=== PATIENT | female | born 1970 | race Caucasian/White ===

== ENCOUNTER 2021-03-31 11:40 | Inpatient (IN) | payer BC ==
[2021-03-31 11:59] LABS: Glucose,Whole Blood 193 mg/dL (75-99)
--- NOTE | 2021-03-31 12:01 | ED ---
General Adult HPI - General Chief complaint: Neuro Symptoms/Deficit Stated complaint: slurred speech, left side feels off Time Seen by Provider: 03/31/21 11:50 Source: patient, RN notes reviewed, old records reviewed Mode of arrival: wheelchair Limitations: no limitations - History of Present Illness Initial comments: This a 50-year-old female presents emergency Department with no significant past medical history. Patient states she does smoke. Patient comes in today because at 8:00 got up to let the dog out and she was speaking find the dog she went back to bed directly. Patient states she then woke up at 1020 and she was having expressive aphasia. Patient is unable to clearly speak at this time. Patient denies any weakness of any of her extremities. Patient does state the left side of her face feels different than the right which she is able to feel light touch and pain. Patient denies any recent fever chills or cough per patient denies any chest pain or palpitations. Patient said difficulty breathing shortness of breath. Patient denies abdominal pain patient denies nausea vomiting diarrhea. - Related Data Home Medications Medication Instructions Recorded Confirmed Apri 1 tab PO DAILY 03/31/21 03/31/21 Allergies Allergy/AdvReac Type Severity Reaction Status Date / Time No Known Allergies Allergy Verified 03/31/21 12:56 Review of Systems ROS Statement: Those systems with pertinent positive or pertinent negative responses have been documented in the HPI. ROS Other: All systems not noted in ROS Statement are negative. Past Medical History Past Medical History: No Reported History History of Any Multi-Drug Resistant Organisms: None Reported Past Surgical History: No Surgical Hx Reported Past Psychological History: No Psychological Hx Reported Smoking Status: Former smoker Past Alcohol Use History: Rare Past Drug Use History: None Reported General Exam - General Exam Comments Initial Comments: GENERAL: Patient is well-developed and well-nourished. Patient is nontoxic and well- hydrated and is in mild distress. ENT: Neck is soft and supple. No significant lymphadenopathy is noted. Oropharynx is clear. Moist mucous membranes. Neck has full range of motion without eliciting any pain. EYES: The sclera were anicteric and conjunctiva were pink and moist. Extraocular movements were intact and pupils were equal round and reactive to light. Eyelids were unremarkable. PULMONARY: Unlabored respirations. Good breath sounds bilaterally. No audible rales rhonchi or wheezing was noted. CARDIOVASCULAR: There is a regular rate and rhythm without any murmurs gallops or rubs. ABDOMEN: Soft and nontender with normal bowel sounds. SKIN: Skin is clear with no lesions or rashes and otherwise unremarkable. NEUROLOGIC: Patient is alert and oriented x3. Cranial nerves II through XII are grossly intact. Patient has normal strength in all 4 extremities. Patient's sensation in the left side of face according to her feels different. Patient has expressive aphasia. Symmetrical smile. Finger nose testing bilaterally was normal. MUSCULOSKELETAL: Normal extremities with adequate strength and full range of motion. LYMPHATICS: No significant lymphadenopathy is noted PSYCHIATRIC: Normal psychiatric evaluation. Limitations: no limitations Course Vital Signs 03/31/21 03/31/21 11:46 12:20 Temperature 97.8 F Pulse Rate 86 81 Respiratory 18 20 Rate Blood Pressure 128/75 130/75 O2 Sat by Pulse 96 96 Oximetry Medical Decision Making - Medical Decision Making EKG shows a sinus rhythm at 83 bpm WI interval 150 QRS 70 QT interval 370 QTC is 434. EKG shows no ST segment elevation or depression. CT of the brain shows a small central potential petechial hemorrhage in the brain stem. No other area of infarct is noted. I spoke with Dr. Guzmán he agreed to admit the patient admitted the patient wrote admitting orders. I spoke with Dr. Wilburn he states he will see the patient today. Patient is not receiving TPA because of the potential hemorrhage and the patient has not received an aspirin or antiplatelet therapy because of the petechial hemorrhage - Lab Data Result diagrams: 03/31/21 12:01 03/31/21 12:01 Lab Results 03/31/21 03/31/21 03/31/21 Range/Units 11:57 12:01 12:01 WBC 8.4 (3.8-10.6) k/uL RBC 4.28 (3.80-5.40) m/uL Hgb 13.5 (11.4-16.0) gm/dL Hct 40.5 (34.0-46.0) % MCV 94.7 (80.0-100.0) fL MCH 31.6 (25.0-35.0) pg MCHC 33.4 (31.0-37.0) g/dL RDW 12.3 (11.5-15.5) % Plt Count 278 (150-450) k/uL MPV 7.7 Neutrophils % 75 % Lymphocytes % 19 % Monocytes % 3 % Eosinophils % 2 % Basophils % 0 % Neutrophils # 6.2 (1.3-7.7) k/uL Lymphocytes # 1.6 (1.0-4.8) k/uL Monocytes # 0.3 (0-1.0) k/uL Eosinophils # 0.1 (0-0.7) k/uL Basophils # 0.0 (0-0.2) k/uL PT 9.6 (9.0-12.0) sec INR 0.9 (<1.2) APTT 22.3 (22.0-30.0) sec Sodium (137-145) mmol/L Potassium (3.5-5.1) mmol/L Chloride (98-107) mmol/L Carbon Dioxide (22-30) mmol/L Anion Gap mmol/L BUN (7-17) mg/dL Creatinine (0.52-1.04) mg/dL Est GFR (CKD-EPI)AfAm (>60 ml/min/1.73 sqM) Est GFR (CKD-EPI)NonAf (>60 ml/min/1.73 sqM) Glucose (74-99) mg/dL POC Glucose (mg/dL) 193 H (75-99) mg/dL POC Glu Rn Surgery Icu ID Yrn Martinez Calcium (8.4-10.2) mg/dL Total Bilirubin (0.2-1.3) mg/dL AST (14-36) U/L ALT (4-34) U/L Alkaline Phosphatase (38-126) U/L Troponin I (0.000-0.034) ng/mL Total Protein (6.3-8.2) g/dL Albumin (3.5-5.0) g/dL 03/31/21 03/31/21 Range/Units 12:01 12:01 WBC (3.8-10.6) k/uL RBC (3.80-5.40) m/uL Hgb (11.4-16.0) gm/dL Hct (34.0-46.0) % MCV (80.0-100.0) fL MCH (25.0-35.0) pg MCHC (31.0-37.0) g/dL RDW (11.5-15.5) % Plt Count (150-450) k/uL MPV Neutrophils % % Lymphocytes % % Monocytes % % Eosinophils % % Basophils % % Neutrophils # (1.3-7.7) k/uL Lymphocytes # (1.0-4.8) k/uL Monocytes # (0-1.0) k/uL Eosinophils # (0-0.7) k/uL Basophils # (0-0.2) k/uL PT (9.0-12.0) sec INR (<1.2) APTT (22.0-30.0) sec Sodium 134 L (137-145) mmol/L Potassium 4.2 (3.5-5.1) mmol/L Chloride 102 (98-107) mmol/L Carbon Dioxide 23 (22-30) mmol/L Anion Gap 9 mmol/L BUN 13 (7-17) mg/dL Creatinine 0.80 (0.52-1.04) mg/dL Est GFR (CKD-EPI)AfAm >90 (>60 ml/min/1.73 sqM) Est GFR (CKD-EPI)NonAf 87 (>60 ml/min/1.73 sqM) Glucose 190 H (74-99) mg/dL POC Glucose (mg/dL) (75-99) mg/dL POC Glu Rn Surgery Icu ID Calcium 9.0 (8.4-10.2) mg/dL Total Bilirubin 0.5 (0.2-1.3) mg/dL AST 23 (14-36) U/L ALT 17 (4-34) U/L Alkaline Phosphatase 61 (38-126) U/L Troponin I <0.012 (0.000-0.034) ng/mL Total Protein 6.9 (6.3-8.2) g/dL Albumin 3.9 (3.5-5.0) g/dL Critical Care Time Critical Care Time: Yes Total Critical Care Time: 35 Disposition Clinical Impression: Cerebrovascular accident (CVA), Brainstem hemorrhage Disposition: ADMITTED IP TO THIS HOSP Referrals: None,Stated [Primary Care Provider] - 1-2 days Time of Disposition: 13:08
[2021-03-31 12:24] LABS: Basophils % (A) 0 %; Eosinophils # (A) 0.1 k/uL (0-0.7); Eosinophils % (A) 2 %; HCT 40.5 % (34.0-46.0); HGB 13.5 gm/dL (11.4-16.0); Lymphocytes # (A) 1.6 k/uL (1.0-4.8); Lymphocytes % (A) 19 %; MCH 31.6 pg (25.0-35.0); MCHC 33.4 g/dL (31.0-37.0); MCV 94.7 fL (80.0-100.0); Mean Platelet Volume 7.7; Monocytes # (A) 0.3 k/uL (0-1.0); Monocytes % (A) 3 %; Neutrophils # (A) 6.2 k/uL (1.3-7.7); Neutrophils % (A) 75 %; Platelet Count 278 k/uL (150-450); RBC 4.28 m/uL (3.80-5.40); RDW 12.3 % (11.5-15.5); WBC 8.4 k/uL (3.8-10.6)
[2021-03-31 12:28] LABS: AST 23 U/L (14-36); African American GFR (CKD) >90 (>60 ml/min/1.73 sqM); Albumin 3.9 g/dL (3.5-5.0); Alkaline Phosphatase 61 U/L (38-126); Carbon Dioxide 23 mmol/L (22-30); Glucose 190 mg/dL (74-99); Non-African American GFR(CKD) 87 (>60 ml/min/1.73 sqM); Total Protein 6.9 g/dL (6.3-8.2)
[2021-03-31 12:32] LABS: ALT 17 U/L (4-34); Anion Gap 9 mmol/L; Blood Urea Nitrogen 13 mg/dL (7-17); Chloride 102 mmol/L (98-107); Potassium 4.2 mmol/L (3.5-5.1); Sodium 134 mmol/L (137-145); Total Bilirubin 0.5 mg/dL (0.2-1.3)
--- NOTE | 2021-03-31 12:34 | CT ---
EXAMINATION TYPE: CT brain wo con for TPA DATE OF EXAM: 03/31/2021 COMPARISON: None INDICATION: Slurred speech, Lt sided weakness DLP: 1044 mGycm, Automated exposure control for dose reduction was used. CONTRAST: None CT of the brain is performed utilizing 3 mm thick sections through the posterior fossa and 3 mm thick sections through the remaining calvarium. Study is performed within 24 hours of arrival to the hosp ital. There is a 0.3 cm punctate area within the central brainstem which is hyperdense. A tiny petechial he morrhage could be considered. Series 201 image 13. MRI could be performed for confirmation. No mass lesion is evident. No acute infarcts are evident. Ventricles and sulci are appropriate for the patient age. Paranasal sinuses and mastoid air cells within the [id number] are clear. IMPRESSIONS: 1. Punctate hyperdensity within the central brainstem. Tiny petechial hemorrhage is not excluded. C onsider MRI for additional evaluation. 2. Suspicious acute infarct is not identified. MRI could further evaluate for acute infarcts. 3. Report was called to the emergency room Dr. Pedraza by Dr. Gu by telephone at time of interpreta tion.
[2021-03-31 12:40] LABS: INR 0.9 (<1.2); Partial Thromboplastin Time 22.3 sec (22.0-30.0); Prothrombin Time 9.6 sec (9.0-12.0)
--- NOTE | 2021-03-31 12:41 | CT ---
EXAMINATION TYPE: CT angio head neck DATE OF EXAM: 03/31/2021 HISTORY: Slurred speech, Lt sided weakness COMPARISON: None CT DLP: 631.9 mGycm. Automated Exposure Control for Dose Reduction was Utilized. TECHNIQUE: CTA scan of the neck is performed with IV Contrast, patient injected with 65 mL of Isovue 370, axial images are obtained, coronal and sagittal reformatted images are reviewed. Three-D recons tructed images are created on an independent workstation and reviewed. Source images are reviewed. FINDINGS: Carotid/Vascular Structures: There is a three-vessel arch. Common carotid arteries bifurcate normally into internal and external carotid arteries. No focal stenosis is evident. The vertebral arteries ar e codominant. Internal carotid arteries are patent to the skull base. Cervical of [place]: Vertebral basilar system appears normal. Posterior cerebral vasculature is unrema rkable. Internal carotid arteries bifurcate normally into A1 and M1 segments. A2 segments are normal. The anterior communicating artery is patent. Left Posterior communicating artery is likely patent. R ight posterior communicating artery is patent. No enhancement at the brainstem to correlate with the finding on CT examination. The punctate central hyperintensity is not reproduced on this exam within the brainstem. Other: Lung apices within the field of view are clear. Portion of the thyroid visualized is normal. IMPRESSION: 1. No flow-limiting stenosis bilateral carotid bifurcations. 2. Normal tetlin of [place] NASCET criteria was used in interpretation of this exam?
--- NOTE | 2021-03-31 12:42 | XR ---
EXAMINATION TYPE: XR chest 2V DATE OF EXAM: 03/31/2021 COMPARISON: None INDICATION: Altered mental status left-sided weakness TECHNIQUE: Frontal and lateral views of the chest are obtained. FINDINGS: The heart size is normal. The pulmonary vasculature is normal. The lungs are clear. IMPRESSION: 1. No acute pulmonary process.
[2021-03-31 16:06] LABS: Amphetamine Screen,Urine Not Detected (NotDetected); Benzodiazepines Screen,Urine Not Detected (NotDetected); Cocaine Screen,Urine Not Detected (NotDetected); Methadone Screen, Urine Not Detected (NotDetected); Opiate Screen,Urine Not Detected (NotDetected); Phencyclidine Screen,Urine Not Detected (NotDetected); Tricyclic Antidepressant,Urine Not Detected (NotDetected); Urn Cannabinoid Scrn Not Detected (NotDetected)
[2021-03-31 16:07] LABS: Barbiturate Screen,Urine Not Detected (NotDetected); Oxycodone Screen, Urine Not Detected (NotDetected)
[2021-03-31] MEDS ORDERED: ACETAMINOPHEN TAB 500 MG TAB PO STA (17:01)
--- NOTE | 2021-03-31 17:17 | P.CNNES ---
History of Present Illness Consult date: 03/31/21 Requesting physician: José Pedraza Reason for Consult: CVA, brainstem hemorrhage History of Present Illness: Patient is a 50-year-old right-handed female came to the hospital at 11:40 AM for acute onset of expressive aphasia. Patient apparently woke up at 8 in the morning, got up, let the dog out and was talking to the dog normally. She went back to sleep shortly after that. She woke up at 10:20 AM and was having expressive aphasia, while she was talking to her daughter. Patient could not get any words out. Patient also noticed numbness of left side of her head including the face. When patient came to ER, she was unable to clearly speak at the time of evaluation in the ER. Patient did not have any weakness of any upper extremities. Her left side of the face felt different as compared to the right. No fever or chills. Denied any numbness tingling or weakness of her extremities. No double vision or loss of vision. Patient states she has never experienced any symptoms like this before. No history of migraines. Patient's vital signs on arrival blood pressure 128/75, pulse rate 86, temperatu re 97.8. Computed tomography scan of head showed punctate hyperdensity within the central brainstem. Tiny petechial hemorrhage is not excluded. Consider MRI for additional evaluation. Suspicious acute infarct is not identified. MRI could further evaluate for acute infarct. I personally reviewed computed tomography scan of the head, and agree with the findings of subtle hyperdensity in the central brainstem, cannot rule out small hemorrhage versus technical artifact. CTA of head and neck showed no flow-limiting stenosis bilateral carotid bifurcations. Normal white earth of [place]. EKG shows normal sinus rhythm. Blood tests showed normal CBC, PT/PTT, normal chem 20. Troponin negative. C hest x-ray showed no acute pulmonary process. Stroke code was activated. ED physician discussed case with stroke neurologist, and patient was not a candidate for TPA because of concern about brainstem hemorrhage, and patient was not a candidate for any neuro intervention, as there was no large vessel occlusion. MRI of the brain was recommended. Patient states that at around noon, she developed left frontal headache, which she rated 6/10. Patient's home medications include control pills Apri. Patient states that she has been on control pills for the last 17 years, although most recent brand Apri started 3 months ago. Patient also mentions that on 03/13/2020 when she received the first time vaccination off Lionel's and Lionel's coronavirus vaccine. Patient denies hypertension or diabetes. Patient was a light smoker 1 pack every 10 days for last 2 years. She has hist ory of light smoking for last 10 years. Denies any use of marijuana. Patient denies any history of migraines. She is gets minor headaches time to time, which is about 2 or 3 times a year, without any vascular features. She takes some OTC medication and the headache goes away. Review of Systems As mentioned in details in HPI. All other 14 point of review systems reviewed and unremarkable. No chest pain shortness of breath wheezing or cough. No double vision. No fever or chills. Past Medical History Past Medical History: No Reported History History of Any Multi-Drug Resistant Organisms: None Reported Past Surgical History: No Surgical Hx Reported Past Psychological History: No Psychological Hx Reported Smoking Status: Former smoker Past Alcohol Use History: Rare Past Drug Use History: None Reported Medications and Allergies Home Medications Medication Instructions Recorded Confirmed Type Apri 1 tab PO DAILY 03/31/21 03/31/21 History Allergies Allergy/AdvReac Type Severity Reaction Status Date / Time No Known Allergies Allergy Verified 03/31/21 12:56 Physical Examination - Vital Signs Vital Signs: Vital Signs Temp Pulse Resp BP Pulse Ox 03/31/21 12:20 81 20 130/75 96 03/31/21 11:46 97.8 F 86 18 128/75 96 Intake and Output 03/30/21 03/31/21 03/31/21 22:59 06:59 14:59 Other: Weight 99.79 kg Patient is a middle aged female, appears younger than her stated age. Patient is alert awake oriented to time place and person. Patient has some word hesitancy, some stuttering at times, and word finding problem. She however could name all 4/4 objects presented. She can repeat, comprehension is perfect. Very mild dysarthria. Attention, concentration and fund of knowledge is adequate. On cranial examination, pupils are round and reacting to light, visual morgan are full on confrontation, extraocular muscles are intact with no nystagmus. Face is symmetric, tongue protrudes to the midline. Palatal elevation and sen sation normal, hearing and shoulder shrug normal, facial sensation although normal to touch, but subjectively feels different on the left. Shoulder shrug normal. On muscle strength testing, there is no pronator drift and the strength is normal in arms and legs distally and proximally. Deep tendon reflexes are 1+ to 2 and symmetric and plantars downgoing. Sensory to touch is equal with no neglect. Cerebellar function showed no ataxia for [id number] testing. No dysdiadochokinesia. Tone and bulk of muscles normal. Gait deferred. On general examination, there is no carotid bruit or murmur, S1-S2 audible. Abdomen is soft nontender, bowel sounds present. Chest is clear. Peripheral pulses are present. No edema. Results - Laboratory Findings CBC and BMP: 03/31/21 12:01 03/31/21 12:01 Abnormal Lab Findings: Abnormal Labs 03/31/21 03/31/21 11:57 12:01 Sodium 134 L Glucose 190 H POC Glucose (mg/dL) 193 H Assessment and Plan Assessment: * Acute onset of expressive aphasia and left facial numbness. Rule out acute CVA. * Abnormal CT head, with evidence of small area of hyperdensity in the brainstem, rule out brainstem hemorrhage. * Hypercoagulable state due to taking control pills Apri, and also received coronavirus vaccination with J&J on 03/13/2021. * Light smoker. Plan: * Patient not a candidate for TPA because of abnormal computed tomography scan of head, showing a possibility of small brainstem hemorrhage. Patient not a candidate for intervention due to no large vessel occlusion. * We will perform stat MRI of the brain with and without contrast. Uncertain if it can be done today on Thursday. * If any changes in neuro status, repeat computed tomography scan of the head without contrast. * Patient's blood pressure is well controlled. * Hold antiplatelet agent (aspirin) until brainstem hemorrhage has been ruled out. * Close neuro checks every 1 hour. * Stop control pills * Complete tobacco cessation. * Telemetry monitoring * Fasting a.m. lipid panel, hemoglobin A1c. * Please call neurology for any changes in patients neuro status. * Dr. Oliver Monet will resume neurology service in the morning.
[2021-03-31] MEDS ORDERED: ALPRAZolam 0.25 MG TAB PO PRN (19:34)
--- NOTE | 2021-03-31 20:50 | HP ---
HISTORY AND PHYSICAL DATE OF SERVICE: 03/31/2021 CHIEF COMPLAINTS: Slurred speech, difficulty speaking and left-sided headache. HISTORY OF PRESENT ILLNESS: This 50-year-old woman with a past medical history of no significant medical or surgical issues recently had a Lionel and Lionel vaccine about 2 weeks ago. The patient apparently had to take it because of work reasons, and the patient is complaining of difficulty speaking today which lasted for several hours, mostly expressive dysphasia. The patient came to [facility]. Her speaking is improving at this time. The patient also had a full stroke workup in the ER. The basic labs in the ER showed normal CBC and sodium was 134, glucose 198. Drug screen was negative. COVID-19 was also negative. The patient had a CT of the brain which showed multiple abnormalities, including punctate hyperdensity within the central brain stem and tiny petechial hemorrhages not ruled out; suspicious acute infarct is not identified. CT angiography was also noted which showed no flow-limiting abnormalities, either. The patient is admitted for further evaluation and treatment. A chest x-ray which I reviewed also personally showed no acute abnormality and EKG showed no acute abnormality either. Neurology, Dr. Hill, has already seen the patient. There is no history of any fever, rigors or chills. No history of headache, loss of consciousness, seizures at this time. PAST MEDICAL HISTORY: No significant cardiovascular illness. HOME MEDICATIONS: None. ALLERGIES: NONE. FAMILY HISTORY: No history of heart disease or strokes in the family. SOCIAL HISTORY: Previous history of smoking. REVIEW OF SYSTEMS: ENT: As mentioned earlier. CARDIOVASCULAR SYSTEM: No angina, palpitations. RESPIRATORY SYSTEM: No cough, hemoptysis. GI: No nausea, vomiting, diarrhea. : No dysuria. NERVOUS SYSTEM: As mentioned earlier. ALLERGY/IMMUNOLOGY: No asthma or hay fever. MUSCULOSKELETAL: As mentioned earlier. HEMATOLOGY/ONCOLOGY: No history of anemia. ENDOCRINE: No history of diabetes or hypothyroidism. CONSTITUTIONAL: As mentioned earlier. DERMATOLOGY: Negative. RHEUMATOLOGY: Negative. PSYCHIATRY: As mentioned earlier. PHYSICAL EXAMINATION: Patient alert and oriented x3. Pulse 76, blood pressure 129/92, respiration 20, temperature 97.8, pulse ox 98% on room air. HEENT: Conjunctivae normal. NECK: No jugular venous distention. CARDIOVASCULAR: S1, S2 muffled. RESPIRATION: Breath sounds diminished at the bases. No rhonchi. No crackles. ABDOMEN: Soft, nontender. No mass palpable. LEGS: No edema. No swelling. NERVOUS SYSTEM: Higher functions as mentioned earlier. Cranial nerves 2 through 12 grossly intact. No focal motor or sensory deficit. LYMPHATICS: No lymph node palpable in neck, axillae or groin. SKIN: No ulcer, rash, bleeding. JOINTS: No active deforming arthropathy. LABS: CBC within normal limits. Sodium 134 and glucose 190. ASSESSMENT: 1. Aphasia possibly. Rule out acute CVA. 2. Rule out brainstem hemorrhage. 3. Rule out cerebral central venous sinus thrombosis. 4. History of recent Lionel and Lionel vaccination. 5. Increased random blood glucose. 6. Hyponatremia. 7. Obesity with body mass index 34.5. 8. FULL CODE. RECOMMENDATIONS AND DISCUSSION: In this 50-year-old woman who presented with multiple complex medical issues, we will monitor the patient closely, continue the current medications, continue with symptomatic treatment. Otherwise at this time we will do a full workup, including 2D echo, MRA and also MRV also will be ordered. Otherwise, DVT prophylaxis. Proton pump inhibitors. Repeat labs in the morning. Guarded prognosis because of multiple complex medical issues. Further recommendations to follow. Also recommend close followup with primary physician and Neurology in the outpatient setting. MMODL / IJN: [id number] /
[2021-03-31] MEDS: PANTOPRAZOLE 40 MG TABLET PO SCH (21:30)
[2021-04-01 04:37] VITALS: RESP 16
[2021-04-01] MEDS: ACETAMINOPHEN TAB 500 MG TAB PO PRN ×3 (04:40→21:00)
[2021-04-01] MEDS: PANTOPRAZOLE 40 MG TABLET PO SCH (06:16)
[2021-04-01 06:59] LABS: Basophils % (A) 0 %; Eosinophils # (A) 0.1 k/uL (0-0.7); Eosinophils % (A) 2 %; HCT 40.6 % (34.0-46.0); HGB 13.5 gm/dL (11.4-16.0); Lymphocytes # (A) 1.9 k/uL (1.0-4.8); Lymphocytes % (A) 25 %; MCH 31.5 pg (25.0-35.0); MCHC 33.3 g/dL (31.0-37.0); MCV 94.8 fL (80.0-100.0); Mean Platelet Volume 7.5; Monocytes # (A) 0.3 k/uL (0-1.0); Monocytes % (A) 4 %; Neutrophils % (A) 68 %; Platelet Count 284 k/uL (150-450); RBC 4.29 m/uL (3.80-5.40); RDW 12.5 % (11.5-15.5); WBC 7.3 k/uL (3.8-10.6)
[2021-04-01 07:10] LABS: Calcium 9.1 mg/dL (8.4-10.2); Potassium 4.2 mmol/L (3.5-5.1)
[2021-04-01 09:21] LABS: Chol/HDL Ratio 3.05 Ratio; LDL Cholesterol,Calculated 108.9 mg/dL (0.0-131.0)
--- NOTE | 2021-04-01 12:09 | MR ---
EXAMINATION TYPE: MR brain wo/w con, MR venography head wo/w con DATE OF EXAM: 04/01/2021 COMPARISON: CT brain dated yesterday. HISTORY: Acute ischemic CVA vs ? brain stem hemorrhage (accession [id number]), Thrombosis (accession [id number]). Slurred speech and left sided weakness. TECHNIQUE: Multiplanar, multisequence images of the brain and brainstem is performed without and with IV contras t, utilizing 10 mL intravenous Gadavist. MRV imaging without and with IV contrast. 2-D and 3-D recons tructed images are created on a independent workstation. FINDINGS: Diffusion weighted images demonstrate roughly 7 x 3 cm area of increased signal on diffusio n weighted images with diminished signal on ADC mapping that shows diminished T1 and increased T2 sig nal with sulcal effacement involving the left frontal lobe image 144 series 403 for reference. The ventricular system and cisternal spaces are normal in size and appearance. The brain volume is a ge appropriate. Occasional scattered T2 hyperintense foci throughout the white matter bilaterally. Ap proximately 10-15 scattered lesions are seen. Midline structures demonstrate normal morphology. The craniocervical junction appears within normal limits. Post contrast images demonstrate no abnormal enhancement. The visualized sinuses are clear a nd the globes are intact. There is patency of the superior sagittal sinus and straight sinus. Patent small caliber inferior sag ittal sinus. Patent internal cerebral vein of [place] draining into bilateral transverse sinuses extend ing into sigmoid sinuses bilaterally. IMPRESSION: 1. No deep cerebral venous thrombosis. 2. Acute infarct left frontal lobe is present. A Yellow level critical message alert has been initiated for Santos Joseph MD via the [employer] Critical Results System on 04/01/2021 12:07 PM. This message alert has been sent to Santos Joseph MD via the preferences provided by the clinician for the receipt of Radiology Critical Findings. Message ID [id number].
--- NOTE | 2021-04-01 14:15 | P.PN ---
Subjective Progress Note Date: 04/01/20 I am seeing the patient for the first time for neurological management. Please refer to Dr. Hill's notes for further details. Patient states her speech is back to baseline and denies any focal weakness, nu mbness. Denies any current headaches. Patient had MRI Brain and MRV head and it is reported as acute infarct in the left frontal lobe is present. No deep cerebral venous thrombosis. Objective - Vital Signs Vital signs: Vital Signs Temp 97.2 F L 04/01/21 07:52 Pulse 75 04/01/21 08:00 Resp 16 04/01/21 08:00 BP 118/69 04/01/21 07:52 Pulse Ox 94 L 04/01/21 07:52 Intake & Output 03/31/21 04/01/21 04/01/21 18:59 06:59 18:59 Weight 99.79 kg 99.79 kg Other: Voiding Method Toilet Toilet # Voids 1 - Exam GENERAL: The patient is lying in bed and is not in acute distress. NEUROLOGICAL: Higher mental function: The patient is awake, alert, oriented to self, place and time. Patient is following commands. No aphasia. No neglect. Cranial nerves: The pupils are round, equal and reactive to light and accommodation. Visual morgan are full to confrontation throughout. Extraocular movement is intact no nystagmus is noted. Facial sensation is normal to touch throughout. The facial strength is normal throughout. Hearing is normal bilaterally to hand rub. Tongue is midline and moved [id number] without any difficulty. No dysarthria is noted. Shoulder shrug is normal bilaterally. Motor: Gait is deferred. The strength is 5 over 5 throughout. Normal tone and bulk. Cerebellum: Normal finger to nose bilaterally. Sensation: Sensation is normal to touch throughout. Reflexes: 1+ throughout. Plantars are downgoing bilaterally. WORK-UP: Lipid panel is a triglyceride 141, cholesterol is 204, LDL of 108 and ACL 66. Hemoglobin A1c is 6.0 Urine drug screen is negative Jefferson virus pcr was not detected Computed tomography scan of head showed punctate hyperdensity within the central brainstem. Tiny petechial hemorrhage is not excluded. Consider MRI for additional evaluation. Suspicious acute infarct is not identified. MRI could further evaluate for acute infarct. CTA of head and neck showed no flow-limiting stenosis bilateral carotid bifurcations. Normal [place] of [place]. Patient had MRI Brain and MRV head and it is reported as acute infarct in the left frontal lobe is present. No deep cerebral venous thrombosis. - Labs CBC & Chem 7: 04/01/21 06:15 04/01/21 06:15 Labs: Abnormal Lab Results - Last 24 Hours (Table) 04/01/21 04/01/21 04/01/21 Range/Units 06:15 06:15 06:15 Sodium 135 L (137-145) mmol/L C-Reactive Protein 1.5 H (<1.0) mg/dL Cholesterol 204.00 H (0.00-200.00) mg/dL HDL Cholesterol 66.90 H (40.00-60.00) mg/dL Assessment and Plan Assessment: * Acute ischemic stroke (left frontal) with symptoms of transient expressive aphasia and left facial numbness. Stroke is cryptogenic (Seems embolic). No IV tpa since there was suspicion for bleed in brainstem and risk outweigh benefit (during presentation). * ?Abnormal CT head, with evidence of small area of hyperdensity in the brainstem, rule out brainstem hemorrhage. Not seen on MRI. * Hypercoagulable state due to taking control pills Apri, and also received coronavirus vaccination with J&J on 03/13/2021. * Tobacco use Plan: I started the patient on ASA 81mg daily and I will repeat CT head tomorrow and if no bleeding on repeat CT head will add Plavix 75mg daily in addition. Started on Lipitor 80mg daily for secondary stroke prophylaxis. 2D echo with bubble study is pending. PT, OT and BILINGUAL SALES ASSISTANT are consulted. Continue Neuro checks. Placed on continous cardiac monitoring. Recommend Hypercoagulable work-up as outpatient (recommend to follow-up with Knowledge Manager as outpatient). Recommend MICHELLE as outpatient. Ordered event monitor Continue to avoid any further estrogen control pills. Patient was counseled on tobacco cessation. Will defer the rest of medical management to the primary team. For DVT prophylaxis: Placed on subq heparin 5000U every 12 hours. Upon discharge, the patient needs to follow-up with neurologist as outpatient within 1-2 weeks. If by tomorrow patient CT is negative for bleed and 2D echo is normal. Will add Plavix and patient is clear for discharge from neurological perspective. The plan is discussed with patient and her nurse. Oliver Monet M.D. Neuro-Hospitalist Time with Patient: Less than 30
[2021-04-01] MEDS: ASPIRIN 81 MG PO SCH (15:41)
--- NOTE | 2021-04-01 20:33 | PN ---
PROGRESS NOTE DATE OF SERVICE: 04/01/2021 This 50-year-old woman who was admitted with left-sided slurred speech and expressive dysphasia. The patient is being closely monitored. Neurology evaluation is in progress. MR did not show any evidence of any cerebellar venous sinus thrombosis. The patient has a family history of strokes and also patient was taking control pills mildly elevated as well as the patient has taken a recent Lionel and Lionel vaccine also. The patient is being closely monitored. Past medical history reviewed. REVIEW OF SYSTEMS: CARDIOVASCULAR SYSTEM: No angina. RESPIRATION: As mentioned earlier. GI: As mentioned earlier. : No dysuria. NERVOUS SYSTEM: As mentioned earlier. CURRENT MEDICATIONS: Reviewed. They include Tylenol, Xanax, aspirin, Lipitor, subcutaneous heparin, Protonix. PHYSICAL EXAMINATION: Patient alert and oriented x3. Pulse 90, blood pressure 170/74, respiration 16, temperature 98.0, pulse ox 98% on room air. HEENT: Conjunctivae normal. NECK: No jugular venous distention. CARDIOVASCULAR: S1, S2 muffled. RESPIRATION: Breath sounds diminished at the bases. No rhonchi. No crackles. ABDOMEN: Soft. LEGS: No edema. No swelling. NERVOUS SYSTEM: No focal deficit. LABS: CBC within normal limits. Sodium 135. Otherwise, cholesterol is 214. ASSESSMENT: 1. Expressive dysphasia, possibly acute left frontal stroke. Rule out embolic source. 2. Possible brainstem lesion not seen on MRI. 3. Cerebral venous thrombosis ruled out. 4. History of recent Lionel and Lionel vaccination. 5. Family history of strokes. 6. Increased random blood sugar. 7. Hyponatremia. 8. Obesity with body mass index 34.5. 9. Hyperlipidemia with mild hypercholesteremia. RECOMMENDATIONS AND DISCUSSION: In this 50-year-old woman who presented with multiple complex medical issues, we will monitor the patient closely, continue the current medications, continue symptomatic treatment. Continue with the antiplatelet agents. I would also recommend a cardiology consultation for possible MICHELLE and telemetry and further evaluation. Guarded prognosis because of multiple complex medical issues. Continue with antiplatelet agents and antihyperlipidemic agents. Further recommendations to follow. Discussed with the patient, who understands and agrees. MMODL / IJN: [id number] / BRANDI
[2021-04-01] MEDS ORDERED: ATORVASTATIN 80 MG TAB PO SCH (21:00)
[2021-04-01] MEDS: HEPARIN SODIUM,PORCINE/PF 5,000 UNIT/0.5 ML SYRINGE SQ SCH (21:01)
[2021-04-01 23:44] LABS: Appearance,Urine Clear (Clear); Bacteria,Urine Rare /hpf; Bilirubin,Urine Negative (Negative); Blood,Urine Small (Negative); Color,Urine Yellow; Glucose,Urine (UA) Negative (Negative); Ketones,Urine Negative (Negative); Leukocyte Esterase,Urine Small (Negative); Mucus,Urine Rare /hpf; Nitrite,Urine Negative (Negative); PH, Urine 6.5 (5.0-8.0); Protein,Urine Trace (Negative); RBC,Urine 8 /hpf (0-5); Specific Gravity,Urine 1.028 (1.001-1.035); Squamous Epithelial Cell,Urine 4 /hpf (0-4); Urobilinogen,Urine <2.0 mg/dL (<2.0); WBC,Urine 2 /hpf (0-5)
[2021-04-02] MEDS: PANTOPRAZOLE 40 MG TABLET PO SCH (07:07)
--- NOTE | 2021-04-02 07:46 | ECHOF ---
Referral Reason:cva MEASUREMENTS -------- HEIGHT: 170.2 cm WEIGHT: 99.8 kg BP: IVSd: 1.1 cm (0.6 - 1.1) LVIDd: 3.3 cm (3.9 - 5.3) LVPWd: 1.1 cm (0.6 - 1.1) IVSs: 1.7 cm LVIDs: 1.9 cm LVPWs: 1.9 cm LAESV Index (A-L): 15.50 ml/m Ao Diam: 3.0 cm (2.0 - 3.7) AV Cusp: 1.6 cm (1.5 - 2.6) LA Diam: 3.3 cm (2.7 - 3.8) MV EXCURSION: 14.924 mm (> 18.000) MV EF SLOPE: 70 mm/s (70 - 150) EPSS: 0.5 cm MV E Alok: 0.59 m/s MV DecT: 209 ms MV A Alok: 0.66 m/s MV E/A Ratio: 0.89 RAP: 5.00 mmHg RVSP: 10.41 mmHg FINDINGS -------- This was a technically good study. The left ventricular size is normal. Left ventricular wall thickness is normal. Overall left vent ricular systolic function is normal with, an EF between 55 - 60 %. The diastolic filling pattern is normal for the age of the patient 7.83. The right ventricle is normal in size. The left atrial size is normal. Normal LA size by volume 22+/-6 ml/m2. The right atrial size is normal. Contrast study was performed with 2 iv injections of 8 ccs of agitated normal saline, at rest, and wi th cough. Interatrial and interventricular septum intact. The aortic valve is trileaflet and appears structurally normal. The mitral valve is normal. There is trace mitral regurgitation. The tricuspid valve appears structurally normal. Trace tricuspid regurgitation present. Right rock tricular systolic pressure is normal at < 35 mmHg. There is no pulmonic regurgitation present. The aortic root size is normal. Normal inferior vena cava with normal inspiratory collapse consistent with estimated right atrial pre ssure of 5 mmHg. There is no pericardial effusion. CONCLUSIONS -------- 1. The left ventricular size is normal. 2. Left ventricular wall thickness is normal. 3. Overall left ventricular systolic function is normal with, an EF between 55 - 60 %. 4. The diastolic filling pattern is normal for the age of the patient 7.83 5. Contrast study was performed with 2 iv injections of 8 ccs of agitated normal saline, at rest, and with cough. 6. Interatrial and interventricular septum intact. 7. There is trace mitral regurgitation. 8. Trace tricuspid regurgitation present. 9. There is no pericardial effusion. ROLL MECHANIC: Rosy Ann RDCS
[2021-04-02 08:06] VITALS: BP 108/66; PULSE 93; TEMP 98.3
[2021-04-02] MEDS: ASPIRIN 81 MG PO SCH (08:07)
[2021-04-02] MEDS: HEPARIN SODIUM,PORCINE/PF 5,000 UNIT/0.5 ML SYRINGE SQ SCH (08:07)
[2021-04-02 08:22] LABS: Basophils % (A) 0 %; Eosinophils # (A) 0.1 k/uL (0-0.7); Eosinophils % (A) 2 %; HCT 39.8 % (34.0-46.0); HGB 13.1 gm/dL (11.4-16.0); Lymphocytes # (A) 2.1 k/uL (1.0-4.8); Lymphocytes % (A) 30 %; MCV 93.9 fL (80.0-100.0); Mean Platelet Volume 7.8; Monocytes # (A) 0.4 k/uL (0-1.0); Monocytes % (A) 5 %; Neutrophils # (A) 4.3 k/uL (1.3-7.7); Neutrophils % (A) 62 %; Platelet Count 300 k/uL (150-450); RBC 4.24 m/uL (3.80-5.40); RDW 12.2 % (11.5-15.5); WBC 6.9 k/uL (3.8-10.6)
[2021-04-02 08:31] LABS: African American GFR (CKD) >90 (>60 ml/min/1.73 sqM); Anion Gap 8 mmol/L; Blood Urea Nitrogen 14 mg/dL (7-17); Carbon Dioxide 23 mmol/L (22-30); Chloride 104 mmol/L (98-107); Glucose 113 mg/dL (74-99); Non-African American GFR(CKD) 82 (>60 ml/min/1.73 sqM); Potassium 4.3 mmol/L (3.5-5.1); Sodium 135 mmol/L (137-145)
--- NOTE | 2021-04-02 08:32 | CT ---
EXAMINATION TYPE: CT brain wo con DATE OF EXAM: 04/02/2021 COMPARISON: CT brain 2 days ago. MRI brain yesterday. HISTORY: CVA, BrainStem Hemorrhage CT DLP: 1062.4 mGycm. Automated Exposure Control for Dose Reduction was Utilized. TECHNIQUE: CT scan of the head is performed without contrast. FINDINGS: Possible 2 mm central punctate density brainstem axial image 12 is less prominent than prio r study. Heterogeneity of skull base redemonstrated. Evolving acute infarct left frontal lobe axial i mage 25 correlates with recent MRI. The ventricles and sulci are stable and within normal limits in s ize. The globes are intact and the visualized sinuses are clear. IMPRESSION: Evolving acute left frontal lobe infarct now identified on CT correlates with MRI from .
[2021-04-02] MEDS ORDERED: CLOPIDOGREL 75 MG TAB PO SCH (09:00)
--- NOTE | 2021-04-02 10:05 | P.CRDCN ---
History of Present Illness Consult date: 04/02/21 History of present illness: HISTORY OF PRESENT ILLNESS: This is a 50-year-old female with no significant past medical history. Patient does not follow with a dietitian assistant. We have been asked to see the patient in consultation for CVA. Patient examined at the bedside. Patient states she woke up Thursday morning and her speech was all garbled. She denied any have weakness of her extremities. The patient denies any history of TIA/CVA. She denies having any palpitations. MRI of the brain was completed revealing no deep cerebral venous thrombosis. Acute infarct left frontal lobe is present. CAT scan performed this morning revealed evolving acute left frontal lobe infarction now identified on CT correlating with MRI from yesterday. The patients speech is now back to baseline. EKG reveals sinus mechanism. Telemetry reveals sinus mechanism with no arrhythmias noted. Echocardiogram completed revealing ejection fraction 55-60%, interatrial and interventricular septum intact, trace mitral regurgitation, and trace tricuspid regurgitation. The patient is a light smoker. She states her sister had a CVA when she was in her 20s that was related to drug use. She states her father has coronary artery disease and recently had open heart surgery. REVIEW OF SYSTEMS: At the time of my exam: CONSTITUTIONAL: Denies fever or chills. HEENT: Denies blurred vision, vision changes, or eye pain. Denies hemoptysis CARDIOVASCULAR: Denies chest pain. Denies orthopnea. Denies PND. Denies palpitations RESPIRATORY: Denies shortness of breath. GASTROINTESTINAL: Denies abdominal pain. Denies nausea or vomiting. HEMATOLOGIC: Denies bleeding disorders. GENITOURINARY: Denies any blood in urine. SKIN: Denies pruitis. Denies rash. PHYSICAL EXAM: VITAL SIGNS: Reviewed. GENERAL: Well-developed in no acute distress. HEENT: Head is normocephalic. Pupils are equal, round. Sclerae anicteric. Mucous membranes of the mouth are moist. Neck supple. No JVD or thyromegaly LUNGS: Respirations even and unlabored. Lungs essentially clear to auscultation bilaterally. HEART: Regular rate and rhythm. S1 and S2 heard. ABDOMEN: Soft. Nondistended. Nontender. EXTREMITIES: Normal range of motion. No clubbing or cyanosis. Peripheral pulses intact. No lower extremity edema NEUROLOGIC: Awake and alert. Oriented x 3. ASSESSMENT: Acute left frontal lobe CVA Expressive aphasia, resolved Nicotine dependence PLAN: Smoking cessation recommended Continue aspirin, plavix, and lipitor Patient to be discharged with a 30 day event monitor Patient will require MICHELLE. This may be done as an outpatient next week with Dr. Shelley (Per Dr. Lepe). The procedure was explained in detail to the patient including the risks and benefits. She is agreeable to proceed. Patient may be discharged home this afternoon and follow up with Dr. Lepe Nurse practitioner note has been reviewed by physician. Signing provider agrees with the documented findings, assessment, and plan of care. Past Medical History Past Medical History: No Reported History History of Any Multi-Drug Resistant Organisms: None Reported Past Surgical History: No Surgical Hx Reported Past Anesthesia/Blood Transfusion Reactions: No Reported Reaction Past Psychological History: No Psychological Hx Reported Smoking Status: Current some day smoker Past Alcohol Use History: Rare Past Drug Use History: None Reported Additional Drug Use History / Comment(s): Pt states she smokes about every other day. - Past Family History Mother Family Medical History: Cancer Additional Family Medical History / Comment(s): from breast cancer Father Family Medical History: AICD/Pacemaker Additional Family Medical History / Comment(s): CABG x4 Medications and Allergies Home Medications Medication Instructions Recorded Confirmed Type Apri 1 tab PO DAILY 03/31/21 03/31/21 History Allergies Allergy/AdvReac Type Severity Reaction Status Date / Time No Known Allergies Allergy Verified 03/31/21 12:56 Physical Exam Vitals: Vital Signs Temp Pulse Pulse Resp BP BP Pulse Ox 04/02/21 08:00 98.3 F 93 16 108/66 96 04/02/21 04:06 97.4 F L 67 16 105/62 97 04/02/21 02:00 16 04/01/21 22:56 97.9 F 76 16 129/77 97 04/01/21 19:53 74 16 122/77 97 04/01/21 16:00 98.0 F 91 16 117/74 98 04/01/21 14:00 77 16 04/01/21 12:00 77 16 125/76 97 Intake and Output 04/01/21 04/02/21 04/02/21 22:59 06:59 14:59 Other: Voiding Method Toilet # Voids 1 Results 04/02/21 07:30 01/04/22 07:30 Lipids 04/01/21 Range/Units 06:15 Triglycerides 141.00 (0.00-149.00) mg/dL Cholesterol 204.00 H (0.00-200.00) mg/dL HDL Cholesterol 66.90 H (40.00-60.00) mg/dL Cholesterol/HDL Ratio 3.05 Ratio Current Medications Generic Name Dose Route Start Last Admin Trade Name Freq PRN Reason Stop Dose Admin Acetaminophen 500 mg 03/31/21 19:34 04/01/21 21:00 Acetaminophen Tab 500 Mg Tab PO 500 mg Q6HR PRN Administration Fever and/ or Pain Alprazolam 0.25 mg 03/31/21 19:34 Alprazolam 0.25 Mg Tab PO TID PRN Anxiety Aspirin 81 mg 04/01/21 12:30 04/02/21 08:07 Aspirin 81 Mg PO 81 mg DAILY YMAIL Administration Atorvastatin Calcium 80 mg 04/01/21 21:00 04/01/21 21:01 Atorvastatin 80 Mg Tab PO 80 mg HS YAMIL Administration Heparin Sodium (Porcine) 5,000 unit 04/01/21 21:00 04/02/21 08:07 Heparin Sodium,Porcine/Pf 5,000 Unit/0.5 Ml Syringe SQ 5,000 unit Q12HR YAMIL Administration Pantoprazole Sodium 40 mg 03/31/21 19:45 04/02/21 07:07 Pantoprazole 40 Mg Tablet PO Not Given [id number] YAMIL Intake and Output 04/01/21 04/02/21 04/02/21 22:59 06:59 14:59 Other: Voiding Method Toilet # Voids 1 04/01/21 06:15 04/01/21 06:15
--- NOTE | 2021-04-02 12:24 | P.PN ---
Subjective Progress Note Date: 04/02/21 The patient is seen at bedside and continues to be feeling well. Denies any further aphasia. Denies any other neurological deficits. Objective - Vital Signs Vital signs: Vital Signs Temp 98.3 F 04/02/21 08:00 Pulse 93 04/02/21 08:00 Resp 16 04/02/21 08:00 BP 108/66 04/02/21 08:00 Pulse Ox 96 04/02/21 08:00 Intake & Output 04/01/21 04/02/21 04/02/21 18:59 06:59 18:59 Intake Total 120 Balance 120 Intake: Oral 120 Other: Voiding Method Toilet Toilet # Voids 2 1 - Exam GENERAL: The patient is lying in bed and is not in acute distress. NEUROLOGICAL: Higher mental function: The patient is awake, alert, oriented to self, place and time. Patient is following commands. No aphasia. No neglect. Cranial nerves: The pupils are round, equal and reactive to light and accommodation. Visual morgan are full to confrontation throughout. Extraocular movement is intact no nystagmus is noted. Facial sensation is normal to touch throughout. The facial strength is normal throughout. Hearing is normal bilaterally to hand rub. Tongue is midline and moved [id number] without any difficulty. No dysarthria is noted. Shoulder shrug is normal bilaterally. Motor: Gait is deferred. The strength is 5 over 5 throughout. Normal tone and bulk. Cerebellum: Normal finger to nose bilaterally. Sensation: Sensation is normal to touch throughout. Reflexes: 1+ throughout. Plantars are downgoing bilaterally. WORK-UP: Lipid panel is a triglyceride 141, cholesterol is 204, LDL of 108 and ACL 66. Hemoglobin A1c is 6.0 Urine drug screen is negative Jefferson virus pcr was not detected Computed tomography scan of head showed punctate hyperdensity within the central brainstem. Tiny petechial hemorrhage is not excluded. Consider MRI for additional evaluation. Suspicious acute infarct is not identified. MRI could further evaluate for acute infarct. CTA of head and neck showed no flow-limiting stenosis bilateral carotid bifurcations. Normal [place] of [place]. MRI Brain and MRV head and it is reported as acute infarct in the left frontal lobe is present. No deep cerebral venous thrombosis. Repeat CT head on 04/02/2020: Is reported as evolving acute left frontal lobe infarct now identified on CT correlate with MRI from yesterday. In the body of the report it it is mentioned possible 2 mm central punctate density brainstem axial image 12 is less prominent than prior study. I personally reviewed that a CT of the head and I don't appreciate any intraparenchymal/brainstem bleeding. 2-D echo was reported as left ventricular wall thickness is normal. Ejection fraction of 55-60%. Contrast study was performed and the intra-arterial an intraventricular septum is intact. Left atrial size is normal. - Labs CBC & Chem 7: 04/02/21 07:30 04/02/21 07:30 Labs: Abnormal Lab Results - Last 24 Hours (Table) 04/01/21 04/02/21 Range/Units 22:30 07:30 Sodium 135 L (137-145) mmol/L Glucose 113 H (74-99) mg/dL Urine Protein Trace H (Negative) Urine Blood Small H (Negative) Ur Leukocyte Esterase Small H (Negative) Urine RBC 8 H (0-5) /hpf Urine Bacteria Rare H (None) /hpf Urine Mucus Rare H (None) /hpf Assessment and Plan Assessment: * Acute ischemic stroke (left frontal) with symptoms of transient expressive aphasia and left facial numbness. Stroke is cryptogenic (Seems embolic). No IV tpa since there was suspicion for bleed in brainstem and risk outweigh benefit (during presentation). * ?Abnormal CT head, with evidence of small area of hyperdensity in the brainstem, rule out brainstem hemorrhage. Not seen on MRI or repeat CT head (therefore no Bleeding noted on repeated images and I it was not definitive bleeding on initial CT). Therefore no evidence of bleed. * Hypercoagulable state due to taking control pills Apri, and also received coronavirus vaccination with J&J on 03/13/2021. * Tobacco use Plan: * Continue ASA 81mg daily and started Plavix 75mg daily (was not on antiplatelets prior to this admission). And to be on dual antiplatelets for 21 days and after that to stop Plavix but continue indefinitely on aspirin 81 mg daily. Decreased Lipitor 80mg daily to 40mg qhs for secondary stroke prophylaxis. * PT, OT and PLATE GRAINER APPRENTICE are consulted. * Continue Neuro checks. * On continous cardiac monitoring. So far no A-fib or flutter so far on tele. * Recommend Hypercoagulable work-up as outpatient (recommend to follow-up with Print Journalist as outpatient). * Recommend MICHELLE as outpatient. Primary team consulted cardiology team for MICHELLE but it seems it will be done as an outpatient. * Ordered event monitor for 30 days and follow-up with cardiology team. * Continue to avoid any further estrogen control pills. * Patient was counseled on tobacco cessation. * Will defer the rest of medical management to the primary team. * For DVT prophylaxis: Continue subq heparin 5000U every 12 hours. * Upon discharge, the patient needs to follow-up with neurologist as outpatient within 1-2 weeks. The plan is discussed with patient, her significant other (who is at bedside) and her nurse. Patient is clear from a neurological perspective. Oliver Monet M.D. Neuro-Hospitalist Time with Patient: Less than 30
[2021-04-02] MEDS ORDERED: ATORVASTATIN 40 MG TAB PO SCH (21:00)
--- NOTE | 2021-04-02 21:31 | DS ---
DISCHARGE SUMMARY FINAL DIAGNOSES: 1. Expressive dysphagia, possibly acute left frontal stroke, rule out embolic source. 2. Possible brainstem lesion in the CT scan, but not seen on MRI. 3. Venous thrombosis ruled out. 4. History of recent Lionel&Lionel vaccination. 5. Family history of stroke. 6. Increased random blood glucose. 7. Hyponatremia. 8. Obesity, body mass of 34.5. 9. Hyperlipidemia. 10.Mild hypercholesteremia. DISCHARGE DISPOSITION: Patient will be discharged in stable condition with guarded prognosis. HISTORY OF PRESENT ILLNESS: This 50-year-old woman with a past medical history of multiple medical problems admitted with expressive dysphasia. The patient had acute stroke in the left frontal area in the MRI scan. Neurovascular workup was otherwise negative. Transthoracic 2D echo was okay. Cardiology recommended outpatient MICHELLE. Neurology saw the patient. Please refer to the multiple consultants notes for further information. Patient improved significantly. There was no focal motor deficit. EXAM: Vitals stable. Cardiovascular S1, S2. Abdomen soft. Nervous system: No focal deficits. DISCHARGE ADVICE AND MEDICATIONS: 1. Diet is cardiac diet. 2. Activity limited until followup. 3. Follow up with Dr. Ahn in 2 days. 4. Follow up with Dr. Dylan Lepe as advised. 5. Follow up with Dr. Hebert as advised. Otherwise discharge medications were: 1. Plavix. 2. Aspirin 81 mg p.o. daily. 3. Lipitor 40 mg p.o. q.h.s. 4. Plavix 75 mg p.o. daily. 5. Tylenol 500 mg q.6 p.r.n. Outpatient followup with Dr. Dylan Lpee for MICHELLE. MMODL / IJN: [id number] / [facility]y
== END 2021-04-02 14:45 | disposition home or self-care (01) | DRG 65 ==
LOC: EC 11:40 → 3SCARD 13:12
PROVIDERS: ADMIT Internal Medicine; ATTEND Internal Medicine
DX: I61.3 Nontraumatic intracerebral hemorrhage in brain stem (principal); E87.1 Hypo-osmolality and hyponatremia; R47.01 Aphasia; R47.81 Slurred speech; Z20.822 Contact with and (suspected) exposure to COVID-19; E66.9 Obesity, unspecified; E78.00 Pure hypercholesterolemia, unspecified; I08.1 Rheumatic disorders of both mitral and tricuspid valves; E78.5 Hyperlipidemia, unspecified; F17.210 Nicotine dependence, cigarettes, uncomplicated; R13.10 Dysphagia, unspecified; R47.02 Dysphasia; Z68.34 Body mass index [BMI] 34.0-34.9, adult; Z80.3 Family history of malignant neoplasm of breast; Z82.3 Family history of stroke; Z82.49 Family history of ischemic heart disease and other diseases of the circulatory system; Z71.6 Tobacco abuse counseling
CPT/HCPCS: 36415; 70450; 70496; 70498; 70546; 70553; 71046; 80048; 80053; 80061; 80306; 81001; 83036; 84443; 84484; 85025; 85379; 85610; 85652; 85730; 86038; 86140; 87635; 93005; 93270; 93306; 99291

== ENCOUNTER 2021-04-09 10:57 | Day surgery (SDC) | payer BC ==
[2021-04-03 13:45] VITALS: BMI 34.4
[2021-04-09] MEDS ORDERED: SODIUM CHLORIDE 0.9% 500 ML 500 ML IV ONE (11:05)
[2021-04-09 11:19] VITALS: TEMP 97.8
[2021-04-09] MEDS ORDERED: fentaNYL (PF) 50 MCG/ML 2 ML AMP ONE (11:52)
[2021-04-09] MEDS ORDERED: BENZOCAINE SPRAY 1 CAN MUCOUS MEM ONE (12:02)
[2021-04-09] MEDS ORDERED: fentaNYL (PF) 50 MCG/ML 2 ML AMP IV ONE (12:06)
[2021-04-09] MEDS ORDERED: MIDAZOLAM 2 MG/2 ML VIAL IV ONE ×2 (12:06→12:10)
[2021-04-09] MEDS ORDERED: SODIUM CHLORIDE 0.9% 1,000 ML IV SCH (12:30)
--- NOTE | 2021-04-09 12:35 | P.TEE ---
Indications for Procedure(s): Rule out Cardec source of emboli, history of CVA Date of Procedure: 04/09/21 Preoperative Diagnosis: CVA Postoperative Diagnosis: No definite cardiac source of emboli noted Description of Procedure(s): INDICATION: This is a 50-year-old female who recently suffered from CVA. A MICHELLE examination is requested to rule out Cardec source of emboli CONSENT: Informed verbal consent is obtained from the patient PROCEDURE:. Patient was brought to the lab in a fasting state. She was prepped and draped in the usual fashion. A she was given Versed 2 mg and fentanyl 50 g for sedation. The throat was sprayed with Hurricaine. A lubricated Omni probe was introduced into the oropharynx and was advanced into the esophagus. Multiple views were obtained. Patient tolerated the procedure well. Color, pulsed and continuous Doppler was performed along with saline contrast bubble injection. Patient tolerated the procedure well. No immediate complications FINDINGS: The aortic valve is tricuspid and function normally. No evidence of stenosis or regurgitation. The ascending aorta appeared within normal. The mitral valve appeared to be normal with trace regurgitation. The tricuspid valve appeared to be normal. The interatrial septum appeared to be intact without any spontaneous shunt. Injection of the saline contrast bubble did not reveal any crossing of the bubbles across the septum. The left atrial appendage appeared to be free of any clot. Left ventricle function is normal. The chamber sizes appear to be normal. The flow in the pulmonary veins appeared to be normal IMPRESSION: #1. No PFO #2. No clot in the left atrial appendage. #3. Normal valvular function, except trace mitral regurgitation. #4. Normal chamber sizes. #5. Preserved LV function PLAN: Continue current medical therapy. Look for other causes of CVA
[2021-04-09 12:56] VITALS: PULSE 66
[2021-04-09 13:48] VITALS: BP 118/76; RESP 16
== END 2021-04-09 13:37 | disposition home or self-care (01) ==
LOC: CATHCVL 10:57
PROVIDERS: ATTEND Internal Medicine Cardiovascular Disease
DX: I34.0 Nonrheumatic mitral (valve) insufficiency (principal); F17.200 Nicotine dependence, unspecified, uncomplicated; Z82.49 Family history of ischemic heart disease and other diseases of the circulatory system; Z20.822 Contact with and (suspected) exposure to COVID-19; Z79.02 Long term (current) use of antithrombotics/antiplatelets; Z79.82 Long term (current) use of aspirin; Z79.899 Other long term (current) drug therapy
CPT/HCPCS: 93312; 93320; 93325; 81025; 87635; J2250; J3010

== ENCOUNTER → 2021-08-22 | Outpatient (CLI) | payer BC ==
[2021-08-22 23:32] LABS: African American GFR (CKD) 89.1 (60.0-200.0); BUN/Creat Ratio 20.95 Ratio (12.00-20.00); Blood Urea Nitrogen 18.5 mg/dL (9.0-27.0); Calcium 9.4 mg/dL (8.7-10.3); Carbon Dioxide 26.3 mmol/L (20.0-27.5); Chloride 101 mmol/L (96-109); Chol/HDL Ratio 2.26 Ratio; Glucose 83 mg/dL (70-110); LDL Cholesterol,Calculated 79.2 mg/dL (0.0-131.0); Non-African American GFR(CKD) 76.8 (60.0-200.0); Potassium 4.2 mmol/L (3.5-5.5); Sodium 135 mmol/L (135-145); VLDL Calculation 10.14 mg/dL (5.00-40.00)
== END | disposition home or self-care (01) ==
LOC: LABWHC1 08:16
PROVIDERS: ATTEND Nurse Practitioner Family
DX: E78.5 Hyperlipidemia, unspecified (principal); R73.09 Other abnormal glucose
CPT/HCPCS: 36415; 80048; 80061; 83036

== ENCOUNTER → 2022-03-06 | Outpatient (CLI) | payer BC ==
--- NOTE | 2022-03-14 08:45 | MM ---
Reason for Exam: Screening (asymptomatic). Last mammogram was performed 1 year(s) and 4 month(s) ago. Patient History: Menarche at age 17. First Full-Term at age 27. Patient has history of breast feeding. Patient used Hormonal Contraceptives for 34 years. Mother had breast cancer, age 48. Risk Values: Sandra 5 year model risk: 1.7%. NCI Lifetime model risk: 15.5%. Prior Study Comparison: 10/26/2019 Bilateral MG screening mammo w CAD - 2, [facility]. 10/31/2020 Bilateral MG 3D screening mammo w/cad, [facility]. Tissue Density: The breast tissue is heterogeneously dense. This may lower the sensitivity of mammography. Findings: Analyzed By CAD. Benign-appearing bilateral axillary lymph nodes are redemonstrated. There is no suspicious new group of microcalcifications or new suspicious mass in either breast. Overall Assessment: Negative, BI-RAD 1 Management: Screening Mammogram of both breasts in 1 year. A clinical breast exam by your physician is recommended on an annual basis and results should be correlated with mammographic findings. Electronically signed and approved by: Reji Fitzgerald M.D.
== END | disposition home or self-care (01) ==
LOC: RADMAMWWP 11:13
PROVIDERS: ATTEND Surgery
DX: Z12.31 Encounter for screening mammogram for malignant neoplasm of breast (principal); Z80.3 Family history of malignant neoplasm of breast
CPT/HCPCS: 77067

== ENCOUNTER → 2022-03-06 | Outpatient (CLI) | payer BC ==
[2022-03-06 10:21] VITALS: BP 134/83; PULSE 90; RESP 16; TEMP 98.4
--- NOTE | 2022-03-06 11:04 | P.GSHP ---
History of Present Illness H&P Date: 03/06/22 Chief Complaint: cancer risk Lluvia is a 51 year old white female seen in consultation for Dr. Ahn regarding her risk of breast cancer. Her last mammogram was October 2020 she was told this was fine, and she is due for a mammogram to be repeated two weeks. She does not feel any lumps masses or nodules of concern in either breast. We do not have her actual mammogram films at this time that we have a report from the patient. She is going to have her next mammogram performed in the [facility]. We will request that the report/films be made available to us. She is not complaining of any nipple discharge or skin changes. She's never had any surgery or biopsies on her breasts. She is not complaining of any trauma or infection in her breast. Note Dr. Ahn 01-07-22 reviewed Caffeine: 2 montsers/day nicotine: 5 cigarettes/day chocolate: occasional BCP: used them for 34 years stopped them in March she had a stroke after COVED vaccine/ 2 weeks Family History: mother: bilateral breast cancer dx. at 48 of this at 59 1/2 sister: colon cancer twice Hormonal History: menarche: 17 , breast fed: yes, age at first : 37 periods regular; LMP February 17 Surgery: none Medical History: aspirin MVI lipitor Social History: smoke: 5 cigarettes/day alcohol: occasional drugs: none - Constitutional Constitutional: Denies chills, Denies fever - EENT Eyes: denies blurred vision, denies pain Ears: deny: decreased hearing, tinnitus Ears, nose, mouth and throat: Denies headache, Denies sore throat - Breasts Breasts: bilateral: as per HPI - Cardiovascular Cardiovascular: Denies chest pain, Denies shortness of breath - Respiratory Comment: smoker Respiratory: Denies cough, Denies 7 - Gastrointestinal Comment: patient has not had a colonoscopy Gastrointestinal: Denies abdominal pain, Denies diarrhea, Denies nausea, Denies vomiting - Genitourinary (Female) Genitourinary: Denies dysuria, Denies hematuria - Menstruation Menstruation: Reports period normal - Musculoskeletal Musculoskeletal: Denies myalgias - Integumentary Integumentary: Denies pruritus, Denies rash - Neurological Comment: CVA - Psychiatric Psychiatric: Reports anxiety - Endocrine Endocrine: Denies fatigue, Denies weight change - Hematologic/Lymphatic Hematologic/Lymphatic: Reports as per HPI - Allergic/Immunologic Comment: none Past Medical History Past Medical History: CVA/TIA Additional Past Medical History / Comment(s): CVA 03/31/21. History of Any Multi-Drug Resistant Organisms: None Reported Past Surgical History: No Surgical Hx Reported Past Anesthesia/Blood Transfusion Reactions: Motion Sickness Additional Past Anesthesia/Blood Transfusion Reaction / Comment(s): Has never anesthesia. Past Psychological History: No Psychological Hx Reported Smoking Status: Former smoker Past Alcohol Use History: Rare Additional Past Alcohol Use History / Comment(s): Quit smoking 5 days ago. Past Drug Use History: None Reported Additional Drug Use History / Comment(s): Pt states she smokes about every other day. - Past Family History Mother Family Medical History: Cancer Additional Family Medical History / Comment(s): from breast cancer. Father Family Medical History: AICD/Pacemaker Additional Family Medical History / Comment(s): CABG X4. Sister(s) Family Medical History: Cancer Additional Family Medical History / Comment(s): Half sister - colon cancer. Medications and Allergies Home Medications Medication Instructions Recorded Confirmed Type Acetaminophen Tab [Tylenol] 500 mg PO Q6HR PRN tab 04/02/21 03/06/22 Rx Aspirin 81 mg PO DAILY 30 Days #30 tab 04/02/21 03/06/22 Rx Atorvastatin [Lipitor] 10 mg PO HS 03/06/22 03/06/22 History Multivitamin [Multivitamins Adult 2 tablet PO DAILY 03/06/22 03/06/22 History Gummies] Allergies Allergy/AdvReac Type Severity Reaction Status Date / Time No Known Allergies Allergy Verified 03/06/22 10:18 Surgical - Exam Vital Signs Temp Pulse Resp BP Pulse Ox 98.4 F 90 16 134/83 100 03/06/22 10:19 03/06/22 10:19 03/06/22 10:19 03/06/22 10:19 03/06/22 10:19 - General no distress - Eyes normal ocular movement - ENT no hearing loss - Neck trachea midline - Respiratory normal respiratory effort, clear to auscultation - Cardiovascular Rhythm: regular Heart Sounds: normal: S1, S2 - Abdomen Abdomen: soft, non tender, no guarding, no rigid, no rebound - Integumentary normal turgor - Neurologic no disoriented, no combative - Musculoskeletal normal gait - Psychiatric oriented to time, oriented to person, oriented to place, speech is normal, memory intact Breast Exam: BRA: 38D inspection: Bilateral grade 2 ptosis Palpation: Right breast: Multi-positional exam fibrocystic changes no dominant masses or nodules of concern Right axilla: No adenopathy of concern Left breast: Multiple positional exam fibrocystic changes no dominant masses or nodules of concern Left axilla: No adenopathy of concern Results Mammogram results not available; verbal report by the patient that in October 2020 she had a normal mammogram she is due for bilateral mammogram within the next 2 weeks Assessment and Plan Assessment: Impression: Positive family history of breast cancer Fibrocystic breast changes 2 for bilateral mammogram in 2 weeks Plan: Request results of mammogram when she has this done Patient is going to consider genetic testing, she is given the information to contact Amina Gruber to help set this up Patient to follow up after genetic testing and mammogram performed CC: Dr. Ahn
== END ==
LOC: WWCWWP 10:15
PROVIDERS: ATTEND Surgery
DX: Z80.3 Family history of malignant neoplasm of breast (principal); F17.210 Nicotine dependence, cigarettes, uncomplicated